=== PATIENT | male | born 1975 | race Caucasian/White ===

== ENCOUNTER 2016-07-11 18:14 | Emergency (ER) | payer BC, OTHER ==
[~2016-07-11 18:14] MED LIST: AMBI10TA PO; FLEXERIL; METO25TAB PO; OPANA ER; PROZ20CA11 PO; TRAZO50TA PO; VITA200028 PO; XANA1TAB2 PO; [UNRECOGNIZED DRUG - OTHER]
[2016-07-11] MEDS ORDERED: IBUPROFEN 800 MG TAB As Ordered ONE (20:19)
--- NOTE | 2016-07-11 21:24 | REP ---
Clinical: Cough . Comparison: 10/05/2010 . Technique: PA and lateral. Findings: The mediastinum and cardiac silhouette are normal. The lung tineo are clear and without acute consolidation, effusion, or pneumothorax. The skeletal structures are intact and normal. Impression: 1. No acute cardiopulmonary process. Signed by Ozzie Hidalgo MD 07/11/2016 09:15 P
[2016-07-11] MEDS ORDERED: DOXYCYCLINE HYCLATE 100 MG TAB As Ordered ONE (21:43)
--- NOTE | 2016-07-11 21:49 | EDDOCDS ---
Physician Documentation [facility] Name: Vadim Flores Age: 41 yrs Sex: Male : 1975 Arrival Date: 07/11/2016 Time: 18:14 Bed PR Private MD: NO PRIMARY PHYSICIAN, . Disposition: 07/11/16 21:40 Discharged to Home/Self Care. Impression: Acute bronchitis. - Condition is Stable. - Discharge Instructions: Acute Bronchitis. - Prescriptions for Doxycycline Hyclate 100 mg Oral Tablet - take 1 tablet by ORAL route every 12 hours; 20 tablet. benzonatate 200 mg Oral Capsule - take 1 capsule by ORAL route 3 times per day As needed; 30 capsule. - Medication Reconciliation, Work Release Form - 1 day, Local Pharmacy Hours form. - [facility] up: [facility]; When: 2 - 3 days; Reason: Recheck today's complaints, Continuance of care. - Problem is new. - Symptoms have improved. Historical: - Allergies: no known allergies; - Home Meds: 1. fluoxetine 20 mg Oral cap 1 cap once daily - PMHx: back pain; herniated disks; - PSHx: Arthroscopy, Knee- Left; Arthroscopy, Knee- Right; Adenoidectomy; Tonsillectomy; back surgery; - Social history: Smoking status: Patient uses tobacco products, light tobacco smoker. No barriers to communication noted, The patient speaks fluent Turkmen. - Family history: Not pertinent. - : The pt / caregiver states he / she is not on anticoagulants. Home medication list is obtained from [employer] import data. - Exposure Risk Screening:: None identified. Vital Signs: 07/11 18:15 BP 134 / 84; Pulse 113; Resp 18 S; Temp 98.5(O); Pulse Ox 98% on R/A; Weight 99.79 kg / dd6 220 lbs (R); Height 5 ft. 7 in. (170.18 cm) (R); Pain 3/10; 21:35 BP 154 / 87; Pulse 88; Resp 18; Temp 98.9(TE); Pulse Ox 96% on R/A; Pain 0/10; ar3 18:15 Body Mass Index 34.46 (99.79 kg, 170.18 cm) dd6 MDM: 20:17 Obtain sample by nasopharyngeal swab ordered. ck7 20:17 Strep Screen, Nursing ordered. ck7 20:18 Ibuprofen 800 mg PO once ordered. ck7 20:18 -Influenza A&B Rapid Antigen - Nose Ordered. EDMS 20:19 Chest, 2 View (pa\E\lat) Ordered. EDMS 20:27 [facility] Payment Agreement was scanned into [facility] [facility] and attached to record. gjb 20:27 Financial registration complete. gjb 20:33 GATS (NEGATIVE STREP SCREEN) Ordered. EDMS 21:29 -Influenza A&B Rapid Antigen - Nose Reviewed. ck7 21:40 Doxycycline 100 mg PO once ordered. ck7 Administered Medications: 20:28 Drug: Ibuprofen 800 mg [ibuprofen 800 mg tablet (1 tabs)] Route: PO; cz 21:47 Drug: Doxycycline 100 mg [doxycycline hyclate 100 mg tablet (1 tabs)] Route: PO; yoav Signatures: Dispatcher [employer] EDIA Cindy Temple RN RN dls Kwaczala, Christopher, RPA-C RPA-Cck7 Hunter Reddy RN RN jmb Beck, Gabriela gjb Zecher, Calvin RN cz The chart was reviewed and I authenticate all verbal orders and agree with the evaluation and treatment provided.Attachments: 20:27 [facility] Payment Agreement page hospital MTDD
--- NOTE | 2016-07-11 21:49 | EDDOCDS ---
Nurse's Notes [facility] Name: Vadim Flores Age: 41 yrs Sex: Male : 1975 Arrival Date: 07/11/2016 Time: 18:14 Bed PR Private MD: NO PRIMARY PHYSICIAN, . Diagnosis: Acute bronchitis Presentation: 07/11 18:19 Presenting complaint: Patient states: Pt presents with sore throat ear ache fever body dls aches x 3 days. Adult Sepsis Screening: The patient does not have new or worsening altered mentation. Patient's respiratory rate is less than 22. Systolic blood pressure is greater than 100. Patient has a qSOFA score of 0- Negative Sepsis Screen. Suicide/Homicide risk assessment- the patient denies having any suicidal and/or homicidal ideations and does not present with any other emotional, behavioral or mental health complaints. Status: Patient is not a conference services coordinator or dependent. Transition of care: patient was not received from another setting of care. 18:19 Acuity: SURYA Level 4 dls 18:19 Method Of Arrival: Walkin/Carried/Asstd dls Triage Assessment: 18:21 General: Appears uncomfortable, well developed, well nourished, well groomed, Behavior dls is cooperative. Pain: Denies pain. HIV screening NA for this visit Offered previously. Historical: - Allergies: no known allergies; - Home Meds: 1. fluoxetine 20 mg Oral cap 1 cap once daily - PMHx: back pain; herniated disks; - PSHx: Arthroscopy, Knee- Left; Arthroscopy, Knee- Right; Adenoidectomy; Tonsillectomy; back surgery; - Social history: Smoking status: Patient uses tobacco products, light tobacco smoker. No barriers to communication noted, The patient speaks fluent French. - Family history: Not pertinent. - : The pt / caregiver states he / she is not on anticoagulants. Home medication list is obtained from [employer] import data. - Exposure Risk Screening:: None identified. Screenin:47 Screening information is obtained from the patient. Fall risk: No risks identified. jmb Assistance ADL's: requires no assistance with activities of daily living. Abuse/DV Screen: The patient / caregiver reports he/she is: not in a situation that causes fear, pain or injury. Nutritional screening: No deficits noted. Advance Directives: Currently, there is no health care proxy. There is no active DNR order. There is no living will. There is no Power of Restaurant Cook. home support is adequate. Assessment: 21:47 General: Patient instructed on discharge instructions. Patient asked if there were any [facility] questions regarding discharge, patient stated no. Patient signed discharge instructions. Patient discharged in stable condition. . Vital Signs: 18:15 BP 134 / 84; Pulse 113; Resp 18 S; Temp 98.5(O); Pulse Ox 98% on R/A; Weight 99.79 kg dd6 (R); Height 5 ft. 7 in. (170.18 cm) (R); Pain 3/10; 21:35 BP 154 / 87; Pulse 88; Resp 18; Temp 98.9(TE); Pulse Ox 96% on R/A; Pain 0/10; ar3 18:15 Body Mass Index 34.46 (99.79 kg, 170.18 cm) dd6 Vitals: 18:15 Log In Time: July 11, 2016 at 18:15. dd6 20:33 Strep Screen is obtained and tested: Negative, a GATSNEG culture is ordered in [facility] and sent. ED Course: 18:15 Patient visited by Anthony Huggins PCA. dd6 18:15 NO PRIMARY PHYSICIAN, . is Private Physician. dd6 18:15 Patient moved to Waiting dd6 18:16 Patient visited by Anthony Huggins PCA. dd6 18:17 Patient moved to Pre RCE dd6 18:20 Triage Initiated dls 20:02 Patient moved to Triage 1 ar3 20:05 Bernard Newell RPA-C is PHCP. ck7 20:05 Андрей Atkinson MD is Attending Physician. ck7 20:05 Patient visited by Bernard Newell RPA-C. ck7 20:26 Patient moved to TR2 jmb 20:27 [facility] Payment Agreement was scanned into [employer] and attached to record. gjb 21:02 Patient visited by Bernard Newell RPA-C. ck7 21:30 Patient moved to PR1 / 25 ar3 21:35 Patient visited by Jessica Hill PCA. ar3 21:39 Chest, 2 View (pa\E\lat) Returned. EDMS 21:40 [facility] is Referral Physician. ck7 21:47 The patient / caregiver is instructed regarding the plan of care and ED course. jmb 21:47 No IV's were initiated during this patient's visit. No procedures done that require jmb assistance. Administered Medications: 20:28 Drug: Ibuprofen 800 mg [ibuprofen 800 mg tablet (1 tabs)] Route: PO; cz 21:47 Drug: Doxycycline 100 mg [doxycycline hyclate 100 mg tablet (1 tabs)] Route: PO; jmb Order Results: Lab Order: -Influenza A&B Rapid Antigen - Nose; SPEC'M 07/11/16 20:23 Test: INFLUENZA A RAPID SCR by ICA; Value: INFLUENZA A RESULTS NEGATIVE; Status: F Test: INFLUENZA A RAPID SCR by ICA; Value: Comments:; Status: F Test: INFLUENZA B RAPID SCR by ICA; Value: INFLUENZA B RESULTS NEGATIVE; Status: F Test Note: ; The Influenza test is a direct rapid immunoassay for the qualitative detection of Influenza viral antigen. Cell culture (Viral Culture) testing should be considered to confirm NEGATIVE results and to assist in detecting other viruses that can provide similar clinical symptoms. Please contact the lab within 24 hours ([phone]) if confirmatory testing is desired. Radiology Order: Chest, 2 View (pa\E\lat) Test: Chest, 2 View (pa\E\lat) REASON FOR EXAMINATION: Cough; Clinical: Cough .; ; Comparison: 10/05/2010 .; ; Technique: PA and lateral.; ; Findings:; The mediastinum and cardiac silhouette are normal. The lung tinoe are clear and; without acute consolidation, effusion, or pneumothorax. The skeletal structures; are intact and normal.; ; Impression:; 1. No acute cardiopulmonary process.; ; ; Signed by; Ozzie Hidalgo MD 07/11/2016 09:15 P; Outcome: 21:40 Discharge ordered by Provider. ck7 21:47 Discharge Assessment: Patient awake, alert and oriented x 3. No cognitive and/or jmb functional deficits noted. Patient verbalized understanding of disposition instructions. Patient awake and alert. obeys commands, Oriented to person, place and time. Patient verbalized understanding of disposition instructions. Patient has no functional deficits. patient administered narcotics - no. The following High Risk Discharge criteria are identified: None. Discharged to home ambulatory. Condition: stable. Discharge instructions given to patient, Instructed on discharge instructions, follow up and referral plans. medication usage, Demonstrated understanding of instructions, medications, Pt was receptive of discharge instructions/ teaching. Prescriptions given X 2, Work note provided to patient. No special radiology studies were completed. Property sent home with patient. 21:48 Patient left the ED. yoav Signatures: Dispatcher [employer] EDCindy Haas, JIGNESH RN Jose Juan Singh RN RN Anthony Whipple, OFFICE SUPPORT CLERK OFFICE SUPPORT CLERK dd6 Jessica Hill, OFFICE SUPPORT CLERK OFFICE SUPPORT CLERK ar3 Bernard Newell, RPA-C RPA-Cck7 Hunter Reddy RN RN jmb Beck, Gabriela gjb MTDMeek
--- NOTE | 2016-07-13 22:49 | EDDOCDS ---
Nurse's Notes [facility] Name: Vadim Flores Age: 41 yrs Sex: Male : 1975 Arrival Date: 07/11/2016 Time: 18:14 Bed PR Private MD: NO PRIMARY PHYSICIAN, . Diagnosis: Acute bronchitis Presentation: 07/11 18:19 Presenting complaint: Patient states: Pt presents with sore throat ear ache fever body dls aches x 3 days. Adult Sepsis Screening: The patient does not have new or worsening altered mentation. Patient's respiratory rate is less than 22. Systolic blood pressure is greater than 100. Patient has a qSOFA score of 0- Negative Sepsis Screen. Suicide/Homicide risk assessment- the patient denies having any suicidal and/or homicidal ideations and does not present with any other emotional, behavioral or mental health complaints. Status: Patient is not a field service technician poultry or dependent. Transition of care: patient was not received from another setting of care. 18:19 Acuity: SURAY Level 4 dls 18:19 Method Of Arrival: Walkin/Carried/Asstd dls Triage Assessment: 18:21 General: Appears uncomfortable, well developed, well nourished, well groomed, Behavior dls is cooperative. Pain: Denies pain. HIV screening NA for this visit Offered previously. Historical: - Allergies: no known allergies; - Home Meds: 1. fluoxetine 20 mg Oral cap 1 cap once daily - PMHx: back pain; herniated disks; - PSHx: Arthroscopy, Knee- Left; Arthroscopy, Knee- Right; Adenoidectomy; Tonsillectomy; back surgery; - Social history: Smoking status: Patient uses tobacco products, light tobacco smoker. No barriers to communication noted, The patient speaks fluent Spanish. - Family history: Not pertinent. - : The pt / caregiver states he / she is not on anticoagulants. Home medication list is obtained from [employer] import data. - Exposure Risk Screening:: None identified. Screenin:47 Screening information is obtained from the patient. Fall risk: No risks identified. jmb Assistance ADL's: requires no assistance with activities of daily living. Abuse/DV Screen: The patient / caregiver reports he/she is: not in a situation that causes fear, pain or injury. Nutritional screening: No deficits noted. Advance Directives: Currently, there is no health care proxy. There is no active DNR order. There is no living will. There is no Power of Human Resources Psychologist. home support is adequate. Assessment: 21:47 General: Patient instructed on discharge instructions. Patient asked if there were any [facility] questions regarding discharge, patient stated no. Patient signed discharge instructions. Patient discharged in stable condition. . Vital Signs: 18:15 BP 134 / 84; Pulse 113; Resp 18 S; Temp 98.5(O); Pulse Ox 98% on R/A; Weight 99.79 kg dd6 (R); Height 5 ft. 7 in. (170.18 cm) (R); Pain 3/10; 21:35 BP 154 / 87; Pulse 88; Resp 18; Temp 98.9(TE); Pulse Ox 96% on R/A; Pain 0/10; ar3 18:15 Body Mass Index 34.46 (99.79 kg, 170.18 cm) dd6 Vitals: 18:15 Log In Time: July 11, 2016 at 18:15. dd6 20:33 Strep Screen is obtained and tested: Negative, a GATSNEG culture is ordered in [facility] and sent. ED Course: 18:15 Patient visited by Anthony Huggins PCA. dd6 18:15 NO PRIMARY PHYSICIAN, . is Private Physician. dd6 18:15 Patient moved to Waiting dd6 18:16 Patient visited by Anthony Huggins PCA. dd6 18:17 Patient moved to Pre RCE dd6 18:20 Triage Initiated dls 20:02 Patient moved to Triage 1 ar3 20:05 Bernard Newell RPA-C is PHCP. ck7 20:05 Андрей Atkinson MD is Attending Physician. ck7 20:05 Patient visited by Bernard Newell RPA-C. ck7 20:26 Patient moved to TR2 jmb 20:27 COUNTS INCLUDE 234 BEDS AT THE [facility] Payment Agreement was scanned into [employer] and attached to record. gjb 21:02 Patient visited by Bernard Newell RPA-C. ck7 21:30 Patient moved to PR1 / 25 ar3 21:35 Patient visited by Jessica Hill PCA. ar3 21:39 Chest, 2 View (pa\E\lat) Returned. EDMS 21:40 [facility] is Referral Physician. ck7 21:47 The patient / caregiver is instructed regarding the plan of care and ED course. jmb 21:47 No IV's were initiated during this patient's visit. No procedures done that require jmb assistance. 07/12 05:41 T-Sheet-- Draft Copy was scanned into [employer] and attached to record. lja Administered Medications: 07/11 20:28 Drug: Ibuprofen 800 mg [ibuprofen 800 mg tablet (1 tabs)] Route: PO; cz 21:47 Drug: Doxycycline 100 mg [doxycycline hyclate 100 mg tablet (1 tabs)] Route: PO; jmb Order Results: Lab Order: -Influenza A&B Rapid Antigen - Nose; SPEC'M 07/11/16 20:23 Test: INFLUENZA A RAPID SCR by ICA; Value: INFLUENZA A RESULTS NEGATIVE; Status: F Test: INFLUENZA A RAPID SCR by ICA; Value: Comments:; Status: F Test: INFLUENZA B RAPID SCR by ICA; Value: INFLUENZA B RESULTS NEGATIVE; Status: F Test Note: ; The Influenza test is a direct rapid immunoassay for the qualitative detection of Influenza viral antigen. Cell culture (Viral Culture) testing should be considered to confirm NEGATIVE results and to assist in detecting other viruses that can provide similar clinical symptoms. Please contact the lab within 24 hours ([phone]) if confirmatory testing is desired. Lab Order: GATS (NEGATIVE STREP SCREEN); SPEC'M 07/11/16 20:23 Test: GATS CULTURE (NEG STREP SCR); Value: GATS RESULT NEGATIVE FOR STREP PYOGENES (GROUP A); Status: F Radiology Order: Chest, 2 View (pa\E\lat) Test: Chest, 2 View (pa\E\lat) REASON FOR EXAMINATION: Cough; Clinical: Cough .; ; Comparison: 10/05/2010 .; ; Technique: PA and lateral.; ; Findings:; The mediastinum and cardiac silhouette are normal. The lung tineo are clear and; without acute consolidation, effusion, or pneumothorax. The skeletal structures; are intact and normal.; ; Impression:; 1. No acute cardiopulmonary process.; ; ; Signed by; Ozzie Hidalgo MD 07/11/2016 09:15 P; Outcome: 21:40 Discharge ordered by Provider. ck7 21:47 Discharge Assessment: Patient awake, alert and oriented x 3. No cognitive and/or jmb functional deficits noted. Patient verbalized understanding of disposition instructions. Patient awake and alert. obeys commands, Oriented to person, place and time. Patient verbalized understanding of disposition instructions. Patient has no functional deficits. patient administered narcotics - no. The following High Risk Discharge criteria are identified: None. Discharged to home ambulatory. Condition: stable. Discharge instructions given to patient, Instructed on discharge instructions, follow up and referral plans. medication usage, Demonstrated understanding of instructions, medications, Pt was receptive of discharge instructions/ teaching. Prescriptions given X 2, Work note provided to patient. No special radiology studies were completed. Property sent home with patient. 21:48 Patient left the ED. yoav Signatures: Dispatcher [employer] EDCindy Haas, JIGNESH RN Jose Juan Singh RN RN Anthony Whipple, PERFORMANCE TEST ENGINEER PERFORMANCE TEST ENGINEER dd6 Jessica Hill, PERFORMANCE TEST ENGINEER PERFORMANCE TEST ENGINEER ar3 Bernard Newell, RPA-C RPA-Cck7 Hunter Redyd RN RN jmb Arel, Herminia Oh Chart Complete MTDD
--- NOTE | 2016-07-13 22:49 | EDDOCDS ---
Physician Documentation [facility] Name: Vadim Flores Age: 41 yrs Sex: Male : 1975 Arrival Date: 07/11/2016 Time: 18:14 Bed PR Private MD: NO PRIMARY PHYSICIAN, . Disposition: 07/11/16 21:40 Discharged to Home/Self Care. Impression: Acute bronchitis. - Condition is Stable. - Discharge Instructions: Acute Bronchitis. - Prescriptions for Doxycycline Hyclate 100 mg Oral Tablet - take 1 tablet by ORAL route every 12 hours; 20 tablet. benzonatate 200 mg Oral Capsule - take 1 capsule by ORAL route 3 times per day As needed; 30 capsule. - Medication Reconciliation, Work Release Form - 1 day, Local Pharmacy Hours form. - Follow up: [facility]; When: 2 - 3 days; Reason: Recheck today's complaints, Continuance of care. - Problem is new. - Symptoms have improved. Historical: - Allergies: no known allergies; - Home Meds: 1. fluoxetine 20 mg Oral cap 1 cap once daily - PMHx: back pain; herniated disks; - PSHx: Arthroscopy, Knee- Left; Arthroscopy, Knee- Right; Adenoidectomy; Tonsillectomy; back surgery; - Social history: Smoking status: Patient uses tobacco products, light tobacco smoker. No barriers to communication noted, The patient speaks fluent Dominican. - Family history: Not pertinent. - : The pt / caregiver states he / she is not on anticoagulants. Home medication list is obtained from [employer] import data. - Exposure Risk Screening:: None identified. Vital Signs: 07/11 18:15 BP 134 / 84; Pulse 113; Resp 18 S; Temp 98.5(O); Pulse Ox 98% on R/A; Weight 99.79 kg / dd6 220 lbs (R); Height 5 ft. 7 in. (170.18 cm) (R); Pain 3/10; 21:35 BP 154 / 87; Pulse 88; Resp 18; Temp 98.9(TE); Pulse Ox 96% on R/A; Pain 0/10; ar3 18:15 Body Mass Index 34.46 (99.79 kg, 170.18 cm) dd6 MDM: 20:17 Obtain sample by nasopharyngeal swab ordered. ck7 20:17 Strep Screen, Nursing ordered. ck7 20:18 Ibuprofen 800 mg PO once ordered. ck7 20:18 -Influenza A&B Rapid Antigen - Nose Ordered. EDMS 20:19 Chest, 2 View (pa\E\lat) Ordered. EDMS 20:27 [facility] Payment Agreement was scanned into [employer] and attached to record. gjb 20:27 Financial registration complete. gjb 20:33 GATS (NEGATIVE STREP SCREEN) Ordered. EDMS 21:29 -Influenza A&B Rapid Antigen - Nose Reviewed. ck7 21:40 Doxycycline 100 mg PO once ordered. ck7 07/12 05:41 T-Sheet-- Draft Copy was scanned into [employer] and attached to record. lja Administered Medications: 07/11 20:28 Drug: Ibuprofen 800 mg [ibuprofen 800 mg tablet (1 tabs)] Route: PO; cz 21:47 Drug: Doxycycline 100 mg [doxycycline hyclate 100 mg tablet (1 tabs)] Route: PO; yoav Signatures: Dispatcher [employer] EDMO Cindy Temple RN RN dls Kwaczala, Christopher, RPA-C RPA-Cck7 Hunter Reddy RN RN jmb Arel, Herminia Oh Calvin RN cz The chart was reviewed and I authenticate all verbal orders and agree with the evaluation and treatment provided.Attachments: 20:27 [facility] Payment Agreement [facility] 07/12 05:41 T-Sheet-- Draft Copy lja Chart Complete MTDD
--- NOTE | 2016-07-13 22:49 | EDDOCDS ---
Physician Documentation [facility] Name: Vadim Flores Age: 41 yrs Sex: Male : 1975 Arrival Date: 07/11/2016 Time: 18:14 Bed PR Private MD: NO PRIMARY PHYSICIAN, . Disposition: 07/11/16 21:40 Discharged to Home/Self Care. Impression: Acute bronchitis. - Condition is Stable. - Discharge Instructions: Acute Bronchitis. - Prescriptions for Doxycycline Hyclate 100 mg Oral Tablet - take 1 tablet by ORAL route every 12 hours; 20 tablet. benzonatate 200 mg Oral Capsule - take 1 capsule by ORAL route 3 times per day As needed; 30 capsule. - Medication Reconciliation, Work Release Form - 1 day, Local Pharmacy Hours form. - Follow up: [facility]; When: 2 - 3 days; Reason: Recheck today's complaints, Continuance of care. - Problem is new. - Symptoms have improved. Historical: - Allergies: no known allergies; - Home Meds: 1. fluoxetine 20 mg Oral cap 1 cap once daily - PMHx: back pain; herniated disks; - PSHx: Arthroscopy, Knee- Left; Arthroscopy, Knee- Right; Adenoidectomy; Tonsillectomy; back surgery; - Social history: Smoking status: Patient uses tobacco products, light tobacco smoker. No barriers to communication noted, The patient speaks fluent Moldovan. - Family history: Not pertinent. - : The pt / caregiver states he / she is not on anticoagulants. Home medication list is obtained from [employer] import data. - Exposure Risk Screening:: None identified. Vital Signs: 07/11 18:15 BP 134 / 84; Pulse 113; Resp 18 S; Temp 98.5(O); Pulse Ox 98% on R/A; Weight 99.79 kg / dd6 220 lbs (R); Height 5 ft. 7 in. (170.18 cm) (R); Pain 3/10; 21:35 BP 154 / 87; Pulse 88; Resp 18; Temp 98.9(TE); Pulse Ox 96% on R/A; Pain 0/10; ar3 18:15 Body Mass Index 34.46 (99.79 kg, 170.18 cm) dd6 MDM: 20:17 Obtain sample by nasopharyngeal swab ordered. ck7 20:17 Strep Screen, Nursing ordered. ck7 20:18 Ibuprofen 800 mg PO once ordered. ck7 20:18 -Influenza A&B Rapid Antigen - Nose Ordered. EDMS 20:19 Chest, 2 View (pa\E\lat) Ordered. EDMS 20:27 COUNT INCLUDES THE [facility] Payment Agreement was scanned into [employer] and attached to record. gjb 20:27 Financial registration complete. gjb 20:33 GATS (NEGATIVE STREP SCREEN) Ordered. EDMS 21:29 -Influenza A&B Rapid Antigen - Nose Reviewed. ck7 21:40 Doxycycline 100 mg PO once ordered. ck7 07/12 05:41 T-Sheet-- Draft Copy was scanned into [employer] and attached to record. lja Administered Medications: 07/11 20:28 Drug: Ibuprofen 800 mg [ibuprofen 800 mg tablet (1 tabs)] Route: PO; cz 21:47 Drug: Doxycycline 100 mg [doxycycline hyclate 100 mg tablet (1 tabs)] Route: PO; yoav Signatures: Dispatcher [employer] EDSC Cindy Temple RN RN dls Kwaczala, Christopher, RPA-C RPA-Cck7 Hunter Reddy RN RN jmb Arel, Herminia Oh Calvin RN cz The chart was reviewed and I authenticate all verbal orders and agree with the evaluation and treatment provided.Attachments: 20:27 COUNT INCLUDES THE [facility] Payment Agreement [facility] 07/12 05:41 T-Sheet-- Draft Copy lja Chart Complete MTDD
== END 2016-07-11 21:48 | disposition home or self-care (01) ==
LOC: M ED 18:14
DX: J20.9 Acute bronchitis, unspecified (principal); M51.26 Other intervertebral disc displacement, lumbar region; Z90.89 Acquired absence of other organs; Z87.39 Personal history of other diseases of the musculoskeletal system and connective tissue; Z72.0 Tobacco use; Z79.899 Other long term (current) drug therapy

== ENCOUNTER 2016-09-05 20:28 | Emergency (ER) | payer BC, OTHER ==
[2016-09-05] MEDS ORDERED: CYCLOBENZAPRINE 10 MG TAB As Ordered ONE (21:08)
--- NOTE | 2016-09-05 21:16 | EDDOCDS ---
Nurse's Notes [facility] Name: Vadim Flores Age: 41 yrs Sex: Male : 1975 Arrival Date: 09/05/2016 Time: 20:28 Bed TR8 Private MD: NO PRIMARY PHYSICIAN, . Diagnosis: Strain of muscle and tendon of back wall of thorax Presentation: 09/05 20:44 Presenting complaint: Patient states: Was moving furniture today and injured his upper lf1 back and neck, pain is currently 6/10. Pt. reports he is a pt. of Dr. Dennis and is on Suboxone so he is unable to take pain meds but would like a muscle relaxer. Acute neurological deficits are not present. Mechanism of Injury: Bending. Adult Sepsis Screening: The patient does not have new or worsening altered mentation. Patient's respiratory rate is less than 22. Systolic blood pressure is greater than 100. Patient has a qSOFA score of 0- Negative Sepsis Screen. Suicide/Homicide risk assessment- the patient denies having any suicidal and/or homicidal ideations and does not present with any other emotional, behavioral or mental health complaints. Status: Patient is not a service clerk or dependent. Transition of care: patient was not received from another setting of care. 20:44 Acuity: SRUYA Level 4 lf1 20:44 Method Of Arrival: Walkin/Carried/Asstd lf1 Triage Assessment: 20:48 General: Appears in no apparent distress, comfortable, Behavior is cooperative. Pain: lf1 Location: right trapezius, left scapular area and right scapular area Pain currently is 7 out of 10 on a pain scale. The patient is triaged at the bedside. See Assessment in Nurses Notes section of ED record. The patient is triaged at the bedside. See Assessment in Nurses Notes section of ED record. Neurological: Level of Consciousness is awake, alert, Oriented to person, place, time. EENT: No deficits noted. Respiratory: Respiratory effort is even, unlabored. GI: Denies nausea, vomiting. Derm: Skin is normal. Musculoskeletal: Reports pain in neck and upper back. Historical: - Allergies: No known drug Allergies; - Home Meds: 1. fluoxetine 20 mg Oral cap 1 cap once daily (Last dose: 09/05/2016 06:00) 2. Remeron 15 mg Oral tab 1 tab once daily (Last dose: 09/04/2016 21:00) 3. Suboxone SL 8mg total - breaks pills in 4 pieces - PMHx: back pain; herniated disks; - PSHx: Arthroscopy, Knee- Left; Adenoidectomy; Tonsillectomy; back surgery; septoplasty; - Social history: Smoking status: Patient uses tobacco products, current every day smoker. No barriers to communication noted, The patient speaks fluent Tongan, Speaks appropriately for age, Preferred Language: Tongan. - Family history: Not pertinent. - : The pt / caregiver states he / she is not on anticoagulants. Home medication list is obtained from the patient. - Exposure Risk Screening:: None identified. Screenin:50 Screening information is obtained from the patient. Fall risk: No risks identified. lf1 Assistance ADL's: requires no assistance with activities of daily living. Abuse/DV Screen: The patient / caregiver reports he/she is: not in a situation that causes fear, pain or injury. Nutritional screening: No deficits noted. Advance Directives: Currently, there is no health care proxy. home support is adequate. Assessment: 21:13 General: alert male with back pain no numbness tingling of extremeities. cz Vital Signs: 20:29 BP 155 / 82; Pulse 96; Resp 16; Temp 97.2(O); Pulse Ox 97% on R/A; Weight 102.06 kg lr2 (R); Height 5 ft. 7 in. (170.18 cm) (R); Pain 6/10; 20:29 Body Mass Index 35.24 (102.06 kg, 170.18 cm) lr2 Vitals: 20:29 Log In Time: September 05, 2016 at 20:28. lr2 ED Course: 20:29 Patient visited by Marilyn Vicente. lr2 20:29 Patient moved to Waiting lr2 20:30 NO PRIMARY PHYSICIAN, . is Private Physician. lr2 20:31 Patient moved to Pre RCE lr2 20:46 Triage Initiated lf1 20:51 Patient moved to Triage 2 ar3 20:59 Bernard Newell RPA-C is PSYCHIATRICP. ck7 20:59 Fahad Crockett DO is Attending Physician. ck7 20:59 Patient visited by Bernard Newell RPA-C. ck7 21:12 Patient moved to TR8 cz 21:13 The patient / caregiver is instructed regarding the plan of care and ED course. cz 21:13 No IV's were initiated during this patient's visit. No procedures done that require cz assistance. Administered Medications: 21:10 Drug: Cyclobenzaprine 10 mg [cyclobenzaprine 10 mg tablet (1 tabs)] Route: PO; cz Order Results: There are currently no results for this order. Outcome: 21:07 Discharge ordered by Provider. ck7 21:13 Discharge Assessment: Patient awake, alert and oriented x 3. No cognitive and/or cz functional deficits noted. Patient verbalized understanding of disposition instructions. patient administered narcotics - no. The following High Risk Discharge criteria are identified: None. Discharged to home ambulatory. Condition: stable. Discharge instructions given to patient, Instructed on discharge instructions, follow up and referral plans. medication usage, Demonstrated understanding of instructions, medications, Pt was receptive of discharge instructions/ teaching. Prescriptions given X 1. No special radiology studies were completed. Property :Personal belongings accompany Pt. 21:15 Patient left the ED. cz Signatures: Jose Juan Blas, RN RN talha Saini,Kaelyn,RN RN lf1 Jessica Hill, NUCLEAR CHEMISTRY TECHNICIAN NUCLEAR CHEMISTRY TECHNICIAN ar3 Bernard Newell, RPA-C RPA-Cck7 Marilyn Vicente MTDD
--- NOTE | 2016-09-05 21:16 | EDDOCDS ---
Physician Documentation [facility] Name: Vadim Flores Age: 41 yrs Sex: Male : 1975 Arrival Date: 09/05/2016 Time: 20:28 Bed TR8 Private MD: NO PRIMARY PHYSICIAN, . Disposition: 09/05/16 21:07 Discharged to Home/Self Care. Impression: Strain of muscle and tendon of back wall of thorax. - Condition is Stable. - Discharge Instructions: Muscle Strain. - Prescriptions for Cyclobenzaprine 10 mg Oral Tablet - take 1 tablet by ORAL route 3 times per day As needed; 15 tablet. - Medication Reconciliation, Local Pharmacy Hours, Work Release Form - 1 day form. - Follow up: Private Physician; When: 2 - 3 days; Reason: Recheck today's complaints, Continuance of care. - Problem is new. - Symptoms have improved. Historical: - Allergies: No known drug Allergies; - Home Meds: 1. fluoxetine 20 mg Oral cap 1 cap once daily (Last dose: 09/05/2016 06:00) 2. Remeron 15 mg Oral tab 1 tab once daily (Last dose: 09/04/2016 21:00) 3. Suboxone SL 8mg total - breaks pills in 4 pieces - PMHx: back pain; herniated disks; - PSHx: Arthroscopy, Knee- Left; Adenoidectomy; Tonsillectomy; back surgery; septoplasty; - Social history: Smoking status: Patient uses tobacco products, current every day smoker. No barriers to communication noted, The patient speaks fluent Icelandic, Speaks appropriately for age, Preferred Language: Icelandic. - Family history: Not pertinent. - : The pt / caregiver states he / she is not on anticoagulants. Home medication list is obtained from the patient. - Exposure Risk Screening:: None identified. Vital Signs: 09/05 20:29 BP 155 / 82; Pulse 96; Resp 16; Temp 97.2(O); Pulse Ox 97% on R/A; Weight 102.06 kg / lr2 225 lbs (R); Height 5 ft. 7 in. (170.18 cm) (R); Pain 6/10; 20:29 Body Mass Index 35.24 (102.06 kg, 170.18 cm) lr2 MDM: 21:07 Cyclobenzaprine 10 mg PO once ordered. ck7 21:12 Financial registration complete. gjb Administered Medications: 21:10 Drug: Cyclobenzaprine 10 mg [cyclobenzaprine 10 mg tablet (1 tabs)] Route: PO; cz Signatures: Jose Juan Blas RN RN cz Ford, Lisa, RN RN lf1 Bernard Newell, RPA-C RPA-Cck7 Herminia Ruiz MTDD
--- NOTE | 2016-09-07 22:15 | EDDOCDS ---
Physician Documentation [facility] Name: Vadim Flores Age: 41 yrs Sex: Male : 1975 Arrival Date: 09/05/2016 Time: 20:28 Bed TR8 Private MD: NO PRIMARY PHYSICIAN, . Disposition: 09/05/16 21:07 Discharged to Home/Self Care. Impression: Strain of muscle and tendon of back wall of thorax. - Condition is Stable. - Discharge Instructions: Muscle Strain. - Prescriptions for Cyclobenzaprine 10 mg Oral Tablet - take 1 tablet by ORAL route 3 times per day As needed; 15 tablet. - Medication Reconciliation, Local Pharmacy Hours, Work Release Form - 1 day form. - Follow up: Private Physician; When: 2 - 3 days; Reason: Recheck today's complaints, Continuance of care. - Problem is new. - Symptoms have improved. Historical: - Allergies: No known drug Allergies; - Home Meds: 1. fluoxetine 20 mg Oral cap 1 cap once daily (Last dose: 09/05/2016 06:00) 2. Remeron 15 mg Oral tab 1 tab once daily (Last dose: 09/04/2016 21:00) 3. Suboxone SL 8mg total - breaks pills in 4 pieces - PMHx: back pain; herniated disks; - PSHx: Arthroscopy, Knee- Left; Adenoidectomy; Tonsillectomy; back surgery; septoplasty; - Social history: Smoking status: Patient uses tobacco products, current every day smoker. No barriers to communication noted, The patient speaks fluent Kyrgyz, Speaks appropriately for age, Preferred Language: Kyrgyz. - Family history: Not pertinent. - : The pt / caregiver states he / she is not on anticoagulants. Home medication list is obtained from the patient. - Exposure Risk Screening:: None identified. Vital Signs: 09/05 20:29 BP 155 / 82; Pulse 96; Resp 16; Temp 97.2(O); Pulse Ox 97% on R/A; Weight 102.06 kg / lr2 225 lbs (R); Height 5 ft. 7 in. (170.18 cm) (R); Pain 6/10; 20:29 Body Mass Index 35.24 (102.06 kg, 170.18 cm) lr2 MDM: 21:07 Cyclobenzaprine 10 mg PO once ordered. ck7 21:12 Financial registration complete. pauline 21:18 [facility] Payment Agreement was scanned into [employer] and attached to record. gjziyad Administered Medications: 21:10 Drug: Cyclobenzaprine 10 mg [cyclobenzaprine 10 mg tablet (1 tabs)] Route: PO; cz Signatures: Jose Juan Blas RN RN cz Kaelyn Saini RN RN lf1 Bernard Newell RPA-C RPA-[facility] [place] Herminia Ruiz The chart was reviewed and I authenticate all verbal orders and agree with the evaluation and treatment provided.Attachments: 21:18 [facility] Payment Agreement gjb Chart Complete MTDD
--- NOTE | 2016-09-07 22:15 | EDDOCDS ---
Physician Documentation [facility] Name: Vadim Flores Age: 41 yrs Sex: Male : 1975 Arrival Date: 09/05/2016 Time: 20:28 Bed TR8 Private MD: NO PRIMARY PHYSICIAN, . Disposition: 09/05/16 21:07 Discharged to Home/Self Care. Impression: Strain of muscle and tendon of back wall of thorax. - Condition is Stable. - Discharge Instructions: Muscle Strain. - Prescriptions for Cyclobenzaprine 10 mg Oral Tablet - take 1 tablet by ORAL route 3 times per day As needed; 15 tablet. - Medication Reconciliation, Local Pharmacy Hours, Work Release Form - 1 day form. - Follow up: Private Physician; When: 2 - 3 days; Reason: Recheck today's complaints, Continuance of care. - Problem is new. - Symptoms have improved. Historical: - Allergies: No known drug Allergies; - Home Meds: 1. fluoxetine 20 mg Oral cap 1 cap once daily (Last dose: 09/05/2016 06:00) 2. Remeron 15 mg Oral tab 1 tab once daily (Last dose: 09/04/2016 21:00) 3. Suboxone SL 8mg total - breaks pills in 4 pieces - PMHx: back pain; herniated disks; - PSHx: Arthroscopy, Knee- Left; Adenoidectomy; Tonsillectomy; back surgery; septoplasty; - Social history: Smoking status: Patient uses tobacco products, current every day smoker. No barriers to communication noted, The patient speaks fluent Telugu, Speaks appropriately for age, Preferred Language: Telugu. - Family history: Not pertinent. - : The pt / caregiver states he / she is not on anticoagulants. Home medication list is obtained from the patient. - Exposure Risk Screening:: None identified. Vital Signs: 09/05 20:29 BP 155 / 82; Pulse 96; Resp 16; Temp 97.2(O); Pulse Ox 97% on R/A; Weight 102.06 kg / lr2 225 lbs (R); Height 5 ft. 7 in. (170.18 cm) (R); Pain 6/10; 20:29 Body Mass Index 35.24 (102.06 kg, 170.18 cm) lr2 MDM: 21:07 Cyclobenzaprine 10 mg PO once ordered. ck7 21:12 Financial registration complete. pauline 21:18 [facility] Payment Agreement was scanned into [employer] and attached to record. gjziyad Administered Medications: 21:10 Drug: Cyclobenzaprine 10 mg [cyclobenzaprine 10 mg tablet (1 tabs)] Route: PO; cz Signatures: Jose Juan Blas RN RN cz Kaelyn Saini RN RN lf1 Bernard Newell RPA-C RPA-[facility] Herminia Ruiz The chart was reviewed and I authenticate all verbal orders and agree with the evaluation and treatment provided.Attachments: 21:18 [facility] Payment Agreement gjb Chart Complete MTDD
--- NOTE | 2016-09-07 22:15 | EDDOCDS ---
Nurse's Notes [facility] Name: Vadim Flores Age: 41 yrs Sex: Male : 1975 Arrival Date: 09/05/2016 Time: 20:28 Bed TR8 Private MD: NO PRIMARY PHYSICIAN, . Diagnosis: Strain of muscle and tendon of back wall of thorax Presentation: 09/05 20:44 Presenting complaint: Patient states: Was moving furniture today and injured his upper lf1 back and neck, pain is currently 6/10. Pt. reports he is a pt. of Dr. Dennis and is on Suboxone so he is unable to take pain meds but would like a muscle relaxer. Acute neurological deficits are not present. Mechanism of Injury: Bending. Adult Sepsis Screening: The patient does not have new or worsening altered mentation. Patient's respiratory rate is less than 22. Systolic blood pressure is greater than 100. Patient has a qSOFA score of 0- Negative Sepsis Screen. Suicide/Homicide risk assessment- the patient denies having any suicidal and/or homicidal ideations and does not present with any other emotional, behavioral or mental health complaints. Status: Patient is not a health services manager or dependent. Transition of care: patient was not received from another setting of care. 20:44 Acuity: SURYA Level 4 lf1 20:44 Method Of Arrival: Walkin/Carried/Asstd lf1 Triage Assessment: 20:48 General: Appears in no apparent distress, comfortable, Behavior is cooperative. Pain: lf1 Location: right trapezius, left scapular area and right scapular area Pain currently is 7 out of 10 on a pain scale. The patient is triaged at the bedside. See Assessment in Nurses Notes section of ED record. The patient is triaged at the bedside. See Assessment in Nurses Notes section of ED record. Neurological: Level of Consciousness is awake, alert, Oriented to person, place, time. EENT: No deficits noted. Respiratory: Respiratory effort is even, unlabored. GI: Denies nausea, vomiting. Derm: Skin is normal. Musculoskeletal: Reports pain in neck and upper back. Historical: - Allergies: No known drug Allergies; - Home Meds: 1. fluoxetine 20 mg Oral cap 1 cap once daily (Last dose: 09/05/2016 06:00) 2. Remeron 15 mg Oral tab 1 tab once daily (Last dose: 09/04/2016 21:00) 3. Suboxone SL 8mg total - breaks pills in 4 pieces - PMHx: back pain; herniated disks; - PSHx: Arthroscopy, Knee- Left; Adenoidectomy; Tonsillectomy; back surgery; septoplasty; - Social history: Smoking status: Patient uses tobacco products, current every day smoker. No barriers to communication noted, The patient speaks fluent [place], Speaks appropriately for age, Preferred Language: [place]. - Family history: Not pertinent. - : The pt / caregiver states he / she is not on anticoagulants. Home medication list is obtained from the patient. - Exposure Risk Screening:: None identified. Screenin:50 Screening information is obtained from the patient. Fall risk: No risks identified. lf1 Assistance ADL's: requires no assistance with activities of daily living. Abuse/DV Screen: The patient / caregiver reports he/she is: not in a situation that causes fear, pain or injury. Nutritional screening: No deficits noted. Advance Directives: Currently, there is no health care proxy. home support is adequate. Assessment: 21:13 General: alert male with back pain no numbness tingling of extremeities. cz Vital Signs: 20:29 BP 155 / 82; Pulse 96; Resp 16; Temp 97.2(O); Pulse Ox 97% on R/A; Weight 102.06 kg lr2 (R); Height 5 ft. 7 in. (170.18 cm) (R); Pain 6/10; 20:29 Body Mass Index 35.24 (102.06 kg, 170.18 cm) lr2 Vitals: 20:29 Log In Time: September 05, 2016 at 20:28. lr2 ED Course: 20:29 Patient visited by Marilyn Vicente. lr2 20:29 Patient moved to Waiting lr2 20:30 NO PRIMARY PHYSICIAN, . is Private Physician. lr2 20:31 Patient moved to Pre RCE lr2 20:46 Triage Initiated lf1 20:51 Patient moved to Triage 2 ar3 20:59 Bernard Newell R[facility]-C [facility]. ck7 20:59 Fahad Crockett DO is Attending Physician. ck7 20:59 Patient visited by Bernard Newell RPA-C. ck7 21:12 Patient moved to TR8 cz 21:13 The patient / caregiver is instructed regarding the plan of care and ED course. cz 21:13 No IV's were initiated during this patient's visit. No procedures done that require cz assistance. 21:18 [facility] Payment Agreement was scanned into [employer] and attached to record. gjb Administered Medications: 21:10 Drug: Cyclobenzaprine 10 mg [cyclobenzaprine 10 mg tablet (1 tabs)] Route: PO; cz Order Results: There are currently no results for this order. Outcome: 21:07 Discharge ordered by Provider. ck7 21:13 Discharge Assessment: Patient awake, alert and oriented x 3. No cognitive and/or cz functional deficits noted. Patient verbalized understanding of disposition instructions. patient administered narcotics - no. The following High Risk Discharge criteria are identified: None. Discharged to home ambulatory. Condition: stable. Discharge instructions given to patient, Instructed on discharge instructions, follow up and referral plans. medication usage, Demonstrated understanding of instructions, medications, Pt was receptive of discharge instructions/ teaching. Prescriptions given X 1. No special radiology studies were completed. Property :Personal belongings accompany Pt. 21:15 Patient left the ED. cz Signatures: Jose Juan Blas, RN RN talha Saini,Kaelyn,RN RN lf1 Jessica Hill, [employer] ar3 Bernard Newell, RPA-C RPA-Cck7 Herminia Ruiz Laura lr2 Chart Complete MTDD
== END 2016-09-05 21:15 | disposition home or self-care (01) ==
LOC: M ED 20:28
DX: S29.012A Strain of muscle and tendon of back wall of thorax, initial encounter (principal); F17.210 Nicotine dependence, cigarettes, uncomplicated; Z79.899 Other long term (current) drug therapy; X50.9XXA Other and unspecified overexertion or strenuous movements or postures, initial encounter; Y92.89 Other specified places as the place of occurrence of the external cause; Y93.89 Activity, other specified; Y99.9 Unspecified external cause status

== ENCOUNTER 2016-09-23 19:10 | Emergency (ER) | payer BC, OTHER ==
[~2016-09-23] VITALS: Ht 170.2 cm; Wt 99.8 kg
[2016-09-23] MEDS ORDERED: SUBO8MIS SL (19:31)
[2016-09-23 21:28] VITALS: BP 144/90
== END 2016-09-23 22:05 | disposition left against medical advice (07) ==
LOC: M ED 20:51
DX: M54.9 Dorsalgia, unspecified (principal); Z53.29 Procedure and treatment not carried out because of patient's decision for other reasons

== ENCOUNTER 2016-09-30 18:20 | Emergency (ER) | payer BC, OTHER ==
[~2016-09-30] VITALS: Ht 170.2 cm; Wt 102.1 kg
[~2016-09-30 18:20] MED LIST changes: +SUBO8MIS SL
[2016-09-30] MEDS ORDERED: MIRT15TA3 (18:32)
[2016-09-30] MEDS ORDERED: IBUPROFEN 800 MG TAB PO ONE (19:30)
[2016-09-30 20:24] VITALS: BP 137/76
== END 2016-09-30 20:26 | disposition home or self-care (01) ==
LOC: M ED 18:42
DX: J02.9 Acute pharyngitis, unspecified (principal); B34.9 Viral infection, unspecified; I10 Essential (primary) hypertension; F41.9 Anxiety disorder, unspecified; Z79.899 Other long term (current) drug therapy; F17.210 Nicotine dependence, cigarettes, uncomplicated

== ENCOUNTER 2016-10-03 15:53 | Emergency (ER) | payer BC, OTHER ==
[~2016-10-03] VITALS: Ht 170.2 cm; Wt 102.1 kg
[~2016-10-03 15:53] MED LIST changes: +MIRT15TA3
[2016-10-03 15:55] VITALS: BP 149/96
[2016-10-03] MEDS ORDERED: PENI250T57 PO (16:04)
[2016-10-03] MEDS ORDERED: NS 1,000 ML IV ONE (16:45)
[2016-10-03] MEDS ORDERED: ONDANSETRON 4MG/2ML VIAL (J2405) IV ONE (16:45)
[2016-10-03] MEDS ORDERED: KETOROLAC 30 MG/ML VIAL (J1885) IV ONE (16:45)
[2016-10-03 16:58] LABS: BASO % 0.7 % (0.0-1.0); EOS # 0.1 K/mm3 (0.0-0.50); EOS % 1.7 % (0.0-3.0); LARGE UNSTAINED CELL # 0.2 K/mm3 (0.0-0.4); LARGE UNSTAINED CELL % 3.4 % (0.0-4.0); LYMPH % 29.7 % (24.0-44.0); MEAN CORPUSCULAR HEMOGLOBIN 30.9 pg (27.0-33.0); MEAN CORPUSCULAR HGB CONC 33.2 g/dl (32.0-36.5); MEAN CORPUSCULAR VOLUME 93.2 fl (80.0-96.0); MONO # 0.4 K/mm3 (0.0-0.8); NEUTROPHILS % 58.6 % (36.0-66.0); PLATELET COUNT, AUTOMATED 288 k/mm3 (150-450); RED CELL DISTRIBUTION WIDTH 12.4 % (11.5-14.5); WHITE BLOOD COUNT 6.8 K/mm3 (4.0-10.0)
[2016-10-03 17:24] LABS: ALBUMIN 3.7 GM/DL (3.2-5.2); ALBUMIN/GLOBULIN RATIO 0.71 (1.00-1.93); ALKALINE PHOSPHATASE 85 U/L (45-117); ALT/SGPT 39 U/L (12-78); ANION GAP 8 MEQ/L (8-16); AST/SGOT 22 U/L (15-37); BILIRUBIN,DIRECT 0.1 MG/DL (0.0-0.2); BILIRUBIN,TOTAL 0.4 MG/DL (0.2-1.0); BLOOD UREA NITROGEN 11 MG/DL (7-18); CALCIUM LEVEL 9.2 MG/DL (8.5-10.1); CARBON DIOXIDE LEVEL 29 MEQ/L (21-32); CHLORIDE LEVEL 104 MEQ/L (98-107); CREATININE FOR GFR 0.83 MG/DL (0.70-1.30); GLOMERULAR FILTRATION RATE > 60.0 (>60); GLUCOSE, FASTING 151 MG/DL (70-105); POTASSIUM SERUM 3.7 MEQ/L (3.5-5.1); SODIUM LEVEL 141 MEQ/L (136-145); TOTAL PROTEIN 8.9 GM/DL (6.4-8.2)
[2016-10-03] MEDS ORDERED: BENT20TA PO (17:54)
[2016-10-03] MEDS ORDERED: GAS-CAP4 PO (17:54)
== END 2016-10-03 17:59 | disposition home or self-care (01) ==
LOC: M ED 16:49
DX: A08.4 Viral intestinal infection, unspecified (principal)
CPT/HCPCS: 80048; 80076; 83690; 85025; 96361; 96374; 96375; 99282; J1885; J2405